=== PATIENT | male | born 1980 | race Hispanic/Latino ===

== ENCOUNTER 2024-03-28 18:30 | Observation (INO) | payer BC, OTHER ==
[~2024-03-28] VITALS: Ht 167.6 cm; Wt 241.8 kg
[2024-03-28 20:28] LABS: BASOPHILS # (AUTO) 0.04 K/uL (0.00-0.20); BASOPHILS % (AUTO) 0.5 % (0.0-5.0); EOSINOPHILS # (AUTO) 0.17 K/uL (0.00-0.70); EOSINOPHILS % (AUTO) 2.3 % (0.0-8.0); HEMATOCRIT 38.1 % (42-54); IMMATURE GRANULOCYTE ABSOLUTE 0.04 K/uL (0-1); LYMPHOCYTES # (AUTO) 1.4 K/uL (1.0-4.8); LYMPHOCYTES % (AUTO) 19.1 % (21.0-51.0); MEAN CORPUSCULAR HEMOGLOBIN 28.3 pg (27.0-33.0); MEAN CORPUSCULAR HGB CONC 31.2 g/dL (32.0-36.0); MEAN CORPUSCULAR VOLUME 90.5 fL (79-99); MONOCYTES # (AUTO) 0.6 K/uL (0.1-1.0); MONOCYTES % (AUTO) 8.6 % (3.0-13.0); PLATELET COUNT (AUTO) 135 K/uL (130-400); RED BLOOD CELL COUNT(AUTO) 4.21 MIL/uL (4.50-6.20); RED CELL DISTRIBUTION WIDTH 17.9 % (11.0-15.5); WHITE BLOOD COUNT (AUTO) 7.3 K/uL (4.8-10.8)
[2024-03-28 20:40] LABS: CREATININE 0.9 mg/dL (0.5-1.3); POTASSIUM 4.1 mmol/L (3.5-5.1)
[2024-03-28 20:59] LABS: B-TYPE NATRIURETIC PEPTIDE 160 pg/mL (0-100)
[2024-03-28 21:36] LABS: ADD UA MICROSCOPIC YES; APPEARANCE,URINE CLEAR (CLEAR); BILIRUBIN,URINE NEGATIVE (NEGATIVE); COLOR,URINE YELLOW (YELLOW); GLUCOSE, URINE (UA) NEGATIVE (NEGATIVE); KETONES,URINE NEGATIVE (NEGATIVE); LEUKOCYTE ESTERASE ,URINE NEGATIVE Leu/uL (NEGATIVE); NITRATE,URINE NEGATIVE (NEGATIVE); OCCULT BLOOD,URINE NEGATIVE (NEGATIVE); PH,URINE 6.5 (5.0-8.0); PROTEIN,URINE 30 mg/dL (NEGATIVE); UROBILINOGEN,URINE >=8.0 mg/dL (0.2-1.0)
[2024-03-28 21:39] LABS: MUCUS,URINE RARE LPF (None Seen); SQUAMOUS EPITHELIAL CELL,UR FEW /HPF (0-2)
[2024-03-28] MEDS: VANCOMYCIN KIT 1 GM/250 ML IV.KIT IV ONE (22:14)
[2024-03-28] MEDS: ZOSYN 3.375GM +NS 50ML IVPB ONE (22:14)
[2024-03-29] VITALS (9 sets, daily range): BP systolic 102–143; BP diastolic 57–88; PULSE 80–95; RESP 15–20; TEMP 97.2–98.4; O2SAT 93–99
[2024-03-29] MEDS ORDERED: VANCOMYCIN PROTOCOL PER PHARMACY IV PRN
[2024-03-29] MEDS ORDERED: ketOROlac 15MG/ML VIAL (15MG/ML) IV PRN
[2024-03-29] MEDS ORDERED: ondanSETRON 4MG INJ IV PRN
[2024-03-29] MEDS ORDERED: SEMA0.258 SQ (05:01)
[2024-03-29] MEDS ORDERED: FURO20TA4 PO (05:01)
[2024-03-29] MEDS: ZOSYN 3.375GM+NS 50ML 50 ML IV SCH (05:22)
[2024-03-29] MEDS: VANCOMYCIN 1.25 GM/250 ML BAG 250 ML IV SCH (05:51)
[2024-03-29 05:56] LABS: BASOPHILS # (AUTO) 0.03 K/uL (0.00-0.20); BASOPHILS % (AUTO) 0.4 % (0.0-5.0); EOSINOPHILS # (AUTO) 0.17 K/uL (0.00-0.70); EOSINOPHILS % (AUTO) 2.3 % (0.0-8.0); HEMATOCRIT 36.4 % (42-54); IMMATURE GRANULOCYTE ABSOLUTE 0.04 K/uL (0-1); LYMPHOCYTES # (AUTO) 1.4 K/uL (1.0-4.8); LYMPHOCYTES % (AUTO) 19.1 % (21.0-51.0); MEAN CORPUSCULAR HEMOGLOBIN 27.8 pg (27.0-33.0); MEAN CORPUSCULAR VOLUME 89.4 fL (79-99); MONOCYTES # (AUTO) 0.7 K/uL (0.1-1.0); MONOCYTES % (AUTO) 9.6 % (3.0-13.0); NEUTROPHILS # (AUTO) 4.9 K/uL (1.8-7.7); PLATELET COUNT (AUTO) 164 K/uL (130-400); RED BLOOD CELL COUNT(AUTO) 4.07 MIL/uL (4.50-6.20); RED CELL DISTRIBUTION WIDTH 17.7 % (11.0-15.5); WHITE BLOOD COUNT (AUTO) 7.3 K/uL (4.8-10.8)
[2024-03-29 06:10] LABS: ALBUMIN 3.2 g/dL (3.5-5.0); BILIRUBIN,TOTAL 1.3 mg/dL (0.2-1.0); CREATININE 0.9 mg/dL (0.5-1.3); MAGNESIUM 1.9 mg/dL (1.80-2.40); POTASSIUM 3.8 mmol/L (3.5-5.1); TOTAL PROTEIN, SERUM 7.7 g/dL (6.0-8.3)
[2024-03-29 07:20] LABS: ERYTHROCYTE SEDIMENTATION RATE 15 MM/HR (0-15)
[2024-03-29] MEDS ORDERED: FURO40TA5 PO (09:29)
[2024-03-29] MEDS: FAMOTIDINE 20MG VIAL IV SCH (09:30)
[2024-03-29 09:53] LABS: HEMOGLOBIN A1C 5.7 % (4.0-6.0)
[2024-03-29] MEDS: ceFEPime HCL 1 GM VIAL IVPB SCH (13:18)
[2024-03-29] MEDS: furoSEMIDE 40MG VIAL IV SCH (13:19)
[2024-03-29] MEDS ORDERED: IOHEXOL 350 MG/ML 100ML INFUS..BTL IV ONE (15:38)
[2024-03-29] MEDS: NYSTatin 15 GM POWDER TP SCH (21:00)
[2024-03-30 03:21] VITALS: BP 124/53; PULSE 87; RESP 20; TEMP 97.9
[2024-03-30 05:04] LABS: BASOPHILS # (AUTO) 0.05 K/uL (0.00-0.20); BASOPHILS % (AUTO) 0.7 % (0.0-5.0); EOSINOPHILS # (AUTO) 0.25 K/uL (0.00-0.70); EOSINOPHILS % (AUTO) 3.3 % (0.0-8.0); HEMATOCRIT 36.4 % (42-54); IMMATURE GRANULOCYTE ABSOLUTE 0.04 K/uL (0-1); LYMPHOCYTES # (AUTO) 1.3 K/uL (1.0-4.8); LYMPHOCYTES % (AUTO) 17.4 % (21.0-51.0); MEAN CORPUSCULAR HEMOGLOBIN 27.2 pg (27.0-33.0); MEAN CORPUSCULAR HGB CONC 29.7 g/dL (32.0-36.0); MEAN CORPUSCULAR VOLUME 91.7 fL (79-99); MONOCYTES # (AUTO) 0.8 K/uL (0.1-1.0); NEUTROPHILS % (AUTO) 67.1 % (40.0-77.0); PLATELET COUNT (AUTO) 137 K/uL (130-400); RED BLOOD CELL COUNT(AUTO) 3.97 MIL/uL (4.50-6.20); WHITE BLOOD COUNT (AUTO) 7.5 K/uL (4.8-10.8)
[2024-03-30 05:20] LABS: ALBUMIN 3.2 g/dL (3.5-5.0); BILIRUBIN,DIRECT 0.7 mg/dL (0.0-0.3); BILIRUBIN,TOTAL 1.5 mg/dL (0.2-1.0); POTASSIUM 3.8 mmol/L (3.5-5.1)
[2024-03-30 08:00] VITALS: BP_SYST 103; BP_SYST 129; BP_DIAS 71; BP_DIAS 74; PULSE 85; PULSE 89; RESP 13; RESP 20; TEMP 97.3; TEMP 97.7
[2024-03-30 09:00] VITALS: O2SAT 98
[2024-03-30 11:25] VITALS: BP 95/42; PULSE 81; RESP 20; TEMP 98.2
[2024-03-30] MEDS ORDERED: CEPH500B PO (11:37)
[2024-03-30] MEDS ORDERED: NYSTPW TP (11:37)
== END 2024-03-30 18:15 | disposition home or self-care (01) ==
LOC: EDH 18:30 → EDHIP 23:56 → 3CH 03-29 01:51
PROVIDERS: ADMIT Hospitalist; ATTEND Hospitalist
DX: N49.2 Inflammatory disorders of scrotum (principal); L03.311 Cellulitis of abdominal wall; I10 Essential (primary) hypertension; D64.9 Anemia, unspecified; B37.2 Candidiasis of skin and nail; E11.9 Type 2 diabetes mellitus without complications; E66.01 Morbid (severe) obesity due to excess calories; R17 Unspecified jaundice; R18.8 Other ascites; I89.0 Lymphedema, not elsewhere classified; Z79.899 Other long term (current) drug therapy; Z98.890 Other specified postprocedural states
CPT/HCPCS: 96376 ×3; 99285; 80048 ×2; 83880 ×2; 85025 ×3; 87040; 83605 ×2; 81001; 36415 ×3; 76870; 84145 ×2; 96365; 96366 ×2; 96375; 96367; 96368; 83036; 80202; 83735 ×2; 80053; 85651; 74178; 82550; 80076; G0378 ×42; J2543 ×2; J3370; J3490 ×3; J0692 ×3; J1940 ×2; Q9967; 3370